=== PATIENT | male | born 1980 | race Caucasian/White ===

== ENCOUNTER 2018-01-17 15:57 | Emergency (ER) | payer SELFPAY ==
--- NOTE | 2018-01-17 17:47 | ER ---
Nurse's Notes [facility] Name: Gaurav Trejo Age: 37 yrs Sex: Male : 1980 Arrival Date: 01/17/2018 Time: 15:58 Bed Waiting Private MD: Diagnosis: Presentation: 01/17 16:04 Presenting complaint: Patient states: Reports falling from standing position and aj hitting left lower ribs on metal footing for carnival ride. Respirations are even and unlabored. Transition of care: patient was not received from another setting of care. Onset of symptoms was January 17, 2018. Initial Sepsis Screen: Does the patient meet any 2 criteria? No. Patient's initial sepsis screen is negative. Does the patient have a suspected source of infection? No. Patient's initial sepsis screen is negative. Care prior to arrival: None. 16:04 Method Of Arrival: Ambulatory 16:04 Acuity: KIM 4 aj Triage Assessment: 16:06 General: Appears in no apparent distress. comfortable, Behavior is calm, cooperative, aj appropriate for age. Pain: Complains of pain in left eighth rib, left ninth rib and left tenth rib. Neuro: Level of Consciousness is awake, alert, obeys commands, Oriented to person, place, time, situation, Appropriate for age. Respiratory: Airway is patent Respiratory effort is even, unlabored, Respiratory pattern is regular, symmetrical. Derm: Skin is intact, is healthy with good turgor, Skin is pink, warm \T\ dry. normal. Musculoskeletal: Circulation, motion, and sensation intact. Reports pain in left eighth rib, left ninth rib and left tenth rib. Historical: - Allergies: 16:06 Codeine; aj 16:06 PENICILLINS; aj - Home Meds: 16:06 Ibuprofen Oral [Active]; aj - PMHx: 16:06 None; aj - PSHx: 16:06 abd sx; aj - Immunization history:: Adult Immunizations up to date. - Social history:: Smoking status: Patient uses tobacco products, smokes one pack cigarettes per day. Vital Signs: 16:06 BP 137 / 101; Pulse 92; Resp 20; Temp 98.7; Pulse Ox 97% on R/A; Weight 77.11 kg; aj Height 5 ft. 9 in. (175.26 cm); Pain 8/10; 16:06 Body Mass Index 25.10 (77.11 kg, 175.26 cm) aj ED Course: 15:58 Patient arrived in ED. as 16:06 Triage completed. aj 16:06 Arm band placed on right wrist. Patient placed in an exam room. aj 16:25 Izaiah Garrison PA is PHCP. jr8 16:25 Se Calderon MD is Attending Physician. jr8 16:29 Patient's name was called from ER lobby. No response. aj 17:08 Patient's name was called from ER lobby. No response. Unable to locate patient. Will aj disposition as left without being seen by a provider. 17:46 Se Calderon MD is Attending Physician. aj 17:46 Patient's name was called from ER lobby. No response. Unable to locate patient. Will aj disposition as left without being seen by a provider. Administered Medications: No medications were administered Outcome: 17:46 Eloped from waiting room. aj 17:46 Patient left the ED. aj Signatures: Kenna Garcia RN RN Gale Beth as Izaiah Garrison PA PA [id number] Corrections: (The following items were deleted from the chart) 16:07 16:06 Social history: Smoking status: Patient/guardian denies using tobacco, aj samara
== END 2018-01-17 17:46 | disposition left against medical advice (07) ==
LOC: ER 15:57
DX: Z02.9 Encounter for administrative examinations, unspecified (principal)
CPT/HCPCS: 99281